=== PATIENT | female | born 1965 | race Caucasian/White ===

== ENCOUNTER → 2019-09-29 | Outpatient (CLI) | payer MEDICARE, MEDICAID ==
[~2019-09-29] MED LIST: CLONAZEPAM 0.50.5 M1; DESYREL300 MG; ENDOCET 10-3251 EACH PO; GEODON20 MG PO; IBU800 MG PO; NAPROXEN PO; PEPCID AC20 MG PO; PERCOCET 5-3251 EACH PO; SKELAXIN 800 M800 M1 PO; TRAZADONE PO; TRAZODONE HCL100 MG PO; ZANAFLEX4 M1 PO; [UNRECOGNIZED DRUG - OTHER] TOP; neurontin PO
== END ==
LOC: M.PC 10:14 → M.RAD 10:14 → M.PC 10:20
DX: M51.16 Intervertebral disc disorders with radiculopathy, lumbar region (principal); M50.122 Cervical disc disorder at C5-C6 level with radiculopathy; M25.78 Osteophyte, vertebrae; M40.40 Postural lordosis, site unspecified; M51.37 Other intervertebral disc degeneration, lumbosacral region; M48.07 Spinal stenosis, lumbosacral region; M47.26 Other spondylosis with radiculopathy, lumbar region